=== PATIENT | male | born 1990 | race Two or more races ===

== ENCOUNTER 2024-05-12 13:13 | Emergency (ER) | payer OTHER ==
[2024-05-12 13:41] VITALS: BP 146/81; PULSE 73; RESP 20; TEMP 97.5; BMI 31.5
[2024-05-12] MEDS: LIDOCAINE 5% TOPICAL PATCH TP ONE (14:02)
[2024-05-12] MEDS: IBUPROFEN 400 MG TABLET (FP) PO ONE (14:02)
[2024-05-12] MEDS ORDERED: IBUPROFEN 400 MG TABLET (FP) PO ONE (14:03)
[2024-05-12] MEDS ORDERED: LIDOCAINE 5% TOPICAL PATCH ONE (14:04)
[2024-05-12] MEDS ORDERED: LIDOCAINE PATCH REMOVAL MC ONE (22:00)
== END 2024-05-12 14:07 | disposition home or self-care (01) ==
LOC: FER 13:13
DX: M54.2 Cervicalgia (principal); V43.52XA Car driver injured in collision with other type car in traffic accident, initial encounter; Y92.410 Unspecified street and highway as the place of occurrence of the external cause
CPT/HCPCS: 99283-25